=== PATIENT | male | born 1980 | race Caucasian/White ===

== ENCOUNTER 2019-08-28 11:33 | Emergency (ER) | payer OTHER ==
[~2019-08-28] VITALS: Ht 180.3 cm; Wt 83.9 kg
[~2019-08-28 11:33] MED LIST: CIPROFLOXACIN500 M1 PO; NORCO 5-325 TA1 EACH PO; PREDNISONE 20 M20 MG PO
[2019-08-28] MEDS ORDERED: MEDROLDOSEPACK PO (12:45)
[2019-08-28] MEDS ORDERED: CYCLOBENZAPRINE5 MG PO (12:45)
[2019-08-28] MEDS ORDERED: NORCO 7.5-3251 EACH PO (12:45)
[2019-08-28 12:59] VITALS: BP 153/88
== END 2019-08-28 12:59 | disposition home or self-care (01) ==
LOC: ER 11:33
DX: M54.41 Lumbago with sciatica, right side (principal); F17.210 Nicotine dependence, cigarettes, uncomplicated